=== PATIENT | female | born 1945 | race Asian ===

== ENCOUNTER 2016-05-07 23:30 | Emergency (ER) | payer MEDICARE, BC ==
[~2016-05-07] VITALS: Ht 157.5 cm; Wt 70.8 kg
[2016-05-07 23:32] VITALS: TEMP 97.5
[2016-05-07 23:50] LABS: BASO # 0.1 (0.0-0.2); BASO % 0.5 % (0.0-2.0); EOS # 0.2 (0.0-0.7); EOS % 1.9 % (0-4.0); GRAN # 5.8 (1.4-6.5); GRAN % 50.9 % (42.2-75.2); LYMPH # 4.6 (1.2-3.4); MEAN CELL VOLUME 88 fl (80.0-100.0); MEAN CORPUSCULAR HGB CONC 33 g/dl (33.0-37.0); MEAN PLATELET VOLUME 11.4 fl (7.4-10.4); MONO # 0.7 (0.1-0.6); MONO % 6.4 % (1.7-9.3); PLATELET COUNT 266 K/mm3 (130-400); RED BLOOD COUNT 3.48 M/mm3 (4.10-5.30); REDCELL DISTRIBUTION WIDTH-CV 13.9 % (11.5-14.5); WHITE BLOOD COUNT 11.5 K/mm3 (4.8-10.8)
[2016-05-07 23:56] LABS: HEMATOCRIT 30.5 % (37.0-47.0); HEMOGLOBIN 10.2 g/dl (12.5-16.0); MEAN CORPUSCULAR HEMOGLOBIN 29 pg (27.0-31.0)
[2016-05-07 23:58] LABS: ADJUSTED CALCIUM 9.2 mg/dL (8.4-10.2); ALBUMIN 3.6 gm/dL (3.5-5.0); BILIRUBIN,TOTAL 0.5 mg/dL (0.0-1.0); CALCIUM 8.9 mg/dL (8.4-10.2); CREATININE, serum 0.74 mg/dL (0.52-1.25); POTASSIUM 3.7 mmol/L (3.4-5.0); TOTAL PROTEIN 6.6 gm/dL (6.4-8.2)
[2016-05-08 00:11] LABS: TROPONIN-I 0.178 ng/mL (0.000-0.034)
[2016-05-08] MEDS ORDERED: GLUCOPHAGE500 MG/TAB PO (00:14)
[2016-05-08] MEDS ORDERED: VITAMIN D32000 IU PO (00:15)
[2016-05-08 00:36] VITALS: BP 124/72; PULSE 75
== END 2016-05-08 01:09 | disposition short-term general hospital (02) ==
LOC: COL.ER 23:30
PROVIDERS: Emergency Medicine
DX: I21.3 ST elevation (STEMI) myocardial infarction of unspecified site (principal); E11.9 Type 2 diabetes mellitus without complications; Z79.84 Long term (current) use of oral hypoglycemic drugs
CPT/HCPCS: J1644; J2405; J3101

== ENCOUNTER 2016-05-24 21:42 | Observation (INO) | payer MEDICARE, BC ==
[~2016-05-24] VITALS: Wt 70.9 kg
[~2016-05-24 21:42] MED LIST: GLUCOPHAGE500 MG/TAB PO; VITAMIN D32000 IU PO
[2016-05-24 22:15] LABS: BASO # 0.1 (0.0-0.2); BASO % 0.9 % (0.0-2.0); EOS # 0.3 (0.0-0.7); EOS % 4.8 % (0-4.0); GRAN # 2.8 (1.4-6.5); GRAN % 51.8 % (42.2-75.2); LYMPH # 1.6 (1.2-3.4); LYMPH % 29.7 % (20.0-51.0); MEAN CELL VOLUME 88 fl (80.0-100.0); MEAN CORPUSCULAR HGB CONC 33 g/dl (33.0-37.0); MEAN PLATELET VOLUME 11.7 fl (7.4-10.4); MONO # 0.7 (0.1-0.6); MONO % 12.2 % (1.7-9.3); PLATELET COUNT 256 K/mm3 (130-400); RED BLOOD COUNT 3.29 M/mm3 (4.10-5.30); REDCELL DISTRIBUTION WIDTH-CV 13.7 % (11.5-14.5); WHITE BLOOD COUNT 5.4 K/mm3 (4.8-10.8)
[2016-05-24] MEDS ORDERED: PLAVIX 75MG TAB75 MG PO (22:17)
[2016-05-24] MEDS ORDERED: ASPIRIN E.C. 8181 MG PO (22:18)
[2016-05-24 22:23] LABS: PROTHROMBIN TIME 10.6 SECONDS (9.7-12.8)
[2016-05-24 22:24] LABS: HEMOGLOBIN 9.7 g/dl (12.5-16.0); MEAN CORPUSCULAR HEMOGLOBIN 29 pg (27.0-31.0)
[2016-05-24 22:26] LABS: PARTIAL THROMBOPLASTIN TIME 31.2 SECONDS (26.0-37.0)
[2016-05-24 22:29] LABS: ADJUSTED CALCIUM 9.3 mg/dL (8.4-10.2); ALBUMIN 3.6 gm/dL (3.5-5.0); BILIRUBIN,TOTAL 0.5 mg/dL (0.0-1.0); CREATININE, serum 0.84 mg/dL (0.52-1.25); POTASSIUM 4.2 mmol/L (3.4-5.0); TOTAL PROTEIN 6.7 gm/dL (6.4-8.2)
[2016-05-24 22:52] LABS: TROPONIN-I 0.35 ng/mL (0.000-0.034)
[2016-05-25 01:07] VITALS: BP 127/77; PULSE 62; TEMP 97.8
[2016-05-25 04:05] VITALS: BP 141/72; PULSE 67; TEMP 97.8
[2016-05-25 07:55] VITALS: BP 123/59; PULSE 61; TEMP 97.3
[2016-05-25 08:00] LABS: BASO # 0.1 (0.0-0.2); BASO % 1.4 % (0.0-2.0); EOS # 0.2 (0.0-0.7); EOS % 5.2 % (0-4.0); GRAN # 2.3 (1.4-6.5); GRAN % 52.4 % (42.2-75.2); LYMPH # 1.2 (1.2-3.4); LYMPH % 26.6 % (20.0-51.0); MEAN CELL VOLUME 90 fl (80.0-100.0); MEAN CORPUSCULAR HGB CONC 32 g/dl (33.0-37.0); MEAN PLATELET VOLUME 11.8 fl (7.4-10.4); MONO # 0.6 (0.1-0.6); MONO % 13.9 % (1.7-9.3); PLATELET COUNT 258 K/mm3 (130-400); RED BLOOD COUNT 3.32 M/mm3 (4.10-5.30); REDCELL DISTRIBUTION WIDTH-CV 13.8 % (11.5-14.5); WHITE BLOOD COUNT 4.4 K/mm3 (4.8-10.8)
[2016-05-25 08:16] LABS: HEMATOCRIT 29.7 % (37.0-47.0); HEMOGLOBIN 9.5 g/dl (12.5-16.0); MEAN CORPUSCULAR HEMOGLOBIN 29 pg (27.0-31.0)
[2016-05-25] MEDS ORDERED: GLUCOTROL 5M5 MG/TAB PO (09:14)
[2016-05-25] MEDS ORDERED: CRESTOR5 MG PO (09:15)
[2016-05-25] MEDS ORDERED: NITROSTAT0.4 MG/TAB SL (09:15)
[2016-05-25] MEDS ORDERED: COREG 3.123.125 MG/T PO (09:16)
[2016-05-25 11:15] VITALS: BP 131/65; PULSE 60; TEMP 98
== END 2016-05-25 12:30 | disposition home or self-care (01) ==
LOC: COL.ER 21:42 → MEDICAL 23:40
PROVIDERS: Emergency Medicine; Family Medicine
DX: I20.9 Angina pectoris, unspecified (principal); I10 Essential (primary) hypertension; Z79.01 Long term (current) use of anticoagulants; Z79.82 Long term (current) use of aspirin; Z95.5 Presence of coronary angioplasty implant and graft
CPT/HCPCS: G0378

== ENCOUNTER 2016-06-26 13:07 | Outpatient (RCR) | payer MEDICARE, BC ==
[~2016-06-26 13:07] MED LIST changes: +ASPIRIN E.C. 8181 MG PO; +COREG 3.123.125 MG/T PO; +CRESTOR5 MG PO; +GLUCOTROL 5M5 MG/TAB PO; +NITROSTAT0.4 MG/TAB SL; +PLAVIX 75MG TAB75 MG PO
== END 2016-06-30 08:04 | disposition home or self-care (01) ==
LOC: COL.CR 13:07
DX: Z48.812 Encounter for surgical aftercare following surgery on the circulatory system (principal); Z95.5 Presence of coronary angioplasty implant and graft

== ENCOUNTER 2017-06-05 08:51 | Day surgery (SDC) | payer MEDICARE, BC ==
[~2017-06-05] VITALS: Ht 157.5 cm; Wt 73.9 kg
[2017-06-05] VITALS (7 sets, daily range): BP systolic 118–154; BP diastolic 66–76; PULSE 55–62; TEMP 97.9
[2017-06-05 09:14] LABS: HEMATOCRIT 34.2 % (37.0-47.0); HEMOGLOBIN 11.4 g/dl (12.5-16.0); MEAN CELL VOLUME 87 fl (80.0-100.0); MEAN CORPUSCULAR HEMOGLOBIN 29 pg (27.0-31.0); MEAN CORPUSCULAR HGB CONC 33 g/dl (33.0-37.0); MEAN PLATELET VOLUME 10.7 fl (7.4-10.4); PLATELET COUNT 259 K/mm3 (130-400); RED BLOOD COUNT 3.92 M/mm3 (4.10-5.30); REDCELL DISTRIBUTION WIDTH-CV 13.7 % (11.5-14.5)
[2017-06-05] MEDS ORDERED: COZAAR 50MG50 MG/TAB PO (09:15)
[2017-06-05] MEDS ORDERED: GLUCOPHAGE500 MG/TAB PO (09:16)
[2017-06-05 09:23] LABS: CALCIUM 9.3 mg/dL (8.4-10.2); CREATININE, serum 0.74 mg/dL (0.52-1.25); POTASSIUM 4.1 mmol/L (3.4-5.0)
[2017-06-05] MEDS ORDERED: COREG 6.256.25 MG/TA PO (11:36)
[2017-06-05] MEDS ORDERED: CRESTOR 10MG10 MG PO (11:36)
== END 2017-06-05 14:40 | disposition home or self-care (01) ==
LOC: COL.CAR 08:51
PROVIDERS: Internal Medicine Cardiovascular Disease
DX: I25.10 Atherosclerotic heart disease of native coronary artery without angina pectoris (principal); R94.39 Abnormal result of other cardiovascular function study; I25.2 Old myocardial infarction; I10 Essential (primary) hypertension; E78.5 Hyperlipidemia, unspecified; D64.9 Anemia, unspecified; E11.9 Type 2 diabetes mellitus without complications; I25.5 Ischemic cardiomyopathy; Z88.7 Allergy status to serum and vaccine; Z90.49 Acquired absence of other specified parts of digestive tract; Z79.82 Long term (current) use of aspirin; Z79.01 Long term (current) use of anticoagulants; Z79.84 Long term (current) use of oral hypoglycemic drugs; Z79.52 Long term (current) use of systemic steroids; Z95.5 Presence of coronary angioplasty implant and graft; Z83.3 Family history of diabetes mellitus; Z82.49 Family history of ischemic heart disease and other diseases of the circulatory system
CPT/HCPCS: J0153; J1644; J2250; J3010; Q9967

== ENCOUNTER → 2017-07-18 | Outpatient (CLI) | payer MEDICARE, BC ==
[~2017-07-18] MED LIST changes: +COREG 6.256.25 MG/TA PO; +COZAAR 50MG50 MG/TAB PO; +CRESTOR 10MG10 MG PO
== END ==
LOC: MC.RAD 09:00
DX: Z12.31 Encounter for screening mammogram for malignant neoplasm of breast (principal)

== ENCOUNTER → 2021-09-21 | Outpatient (CLI) | payer MEDICARE, BC ==
[~2021-09-21] MED LIST changes: +LIPITOR 80MG80 MG PO
== END ==
LOC: MC.RAD 10:58
DX: R92.0 Mammographic microcalcification found on diagnostic imaging of breast (principal)